=== PATIENT | male | born 1970 | race Caucasian/White ===

== ENCOUNTER → 2017-08-19 | Outpatient (CLI) | payer BC ==
--- NOTE | 2017-08-19 13:10 | RAD ---
5 views of the lumbar spine 08/19/2017 Indication: Low back pain. Radiculopathy. Comparison study: None Findings: No acute fracture or alignment abnormality is identified. Mild degenerative disc space narrowing is seen in the inferior thoracic spine and throughout the lumbar spine. No spondylolysis or spondylolisthesis is identified. Some facet arthrosis appears to be present at the lumbosacral junction with possible congenital shortening of the pedicles at L5. Spinal stenosis cannot excluded. No acute soft tissue changes are seen. Impression: Degenerative changes of the lumbar spine as described, most prominent at the lumbosacral junction, without evidence of acute osseous abnormality
== END | disposition home or self-care (01) ==
LOC: PMG 11:52
PROVIDERS: ATTEND Physician Assistant
DX: M47.897 Other spondylosis, lumbosacral region (principal)
CPT/HCPCS: 72110

== ENCOUNTER → 2017-08-28 | Outpatient (CLI) | payer BC ==
--- NOTE | 2017-08-28 17:34 | RAD ---
Right lower extremity soft tissue ultrasound HISTORY: Right thigh lump and pain for 3 days FINDINGS: Sonography of the anterior right thigh clinical area of concern demonstrates no mass, fluid collection, edema or abnormality. IMPRESSION: Negative exam. Electronically signed by: Kris Ocampo MD (08/28/2017 5:31 PM) [facility]
== END ==
LOC: PMG 16:08
PROVIDERS: ATTEND Physician Assistant Medical
DX: M79.604 Pain in right leg (principal)
CPT/HCPCS: 76881